=== PATIENT | male | born 1960 | race Asian ===

== ENCOUNTER → 2016-09-04 | Outpatient (CLI) | payer BC | LOC: PCVCIMAG 10:38 | PROVIDERS: ATTEND Internal Medicine Cardiovascular Disease | DX: R94.31 Abnormal electrocardiogram [ECG] [EKG] (principal); R00.1 Bradycardia, unspecified | CPT/HCPCS: 93325; 93351 ==

== ENCOUNTER → 2017-11-28 | Outpatient (CLI) | payer BC ==
[~2017-11-28] MED LIST: BENZOCAINE ONE 20% MUCOSAL SPRAY.; IV NORMAL SALINE 500ML BAG 500 ML; MIDAZOLAM HCL/PF 2 MG/2 ML VIAL.; fentaNYL PF VIAL 100 MCG/2 ML VIAL
== END | disposition home or self-care (01) ==
LOC: PCVCIMAG 13:05
DX: I48.91 Unspecified atrial fibrillation (principal); I05.1 Rheumatic mitral insufficiency
CPT/HCPCS: 93312; 93325; J2250; J3010; J7040

== ENCOUNTER → 2018-04-01 | Outpatient (CLI) | payer BC ==
--- NOTE | 2018-04-02 15:43 | PCVCIMAG ---
APPROVED REPORT Imaging Protocol: Rest Tc-99m/Stress Tc-99m 1 day Study performed: 04/01/2018 14:25:09 Indication: Dyspnea, P-Afib post Ablation Patient Location: Out-Patient Stress Nurse: Dana Arana RN, Shannon Min RN VT Tech:Janeth KOMAL PooleMT Ht: 5 ft 9 in Wt: 168 lbs BSA: 1.92 m2 HR: 80 bpm BP: 116/77 mmHg BMI: 24.8 Rhythm: Sinus Rhythm, early repolarization Medical History Medications: Xarelto Allergies: No known drug allergies Cardiac Risk Factors: Age, Afib Pretest Chest Pain Characteristics: No chest pain Exercise History: Physically active Resting Data Rest SPECT myocardial perfusion imaging was performed in supine position 45 minutes following the intravenous injection of 10.2 mCi of Tc-99m Sestamibi. Time of rest injection: 1350 Date: 04/01/2018 Administration Route: IV Administration Site: Right AC Exercise Stress At peak stress, the patient was injected intravenously with 31.6mCi of Tc-99m Sestamibi. Time of stress injection: Administration Route: IV Administration Site: Right AC Patient continued to exercise for 1 minute(s). Gated Stress SPECT was performed 30 minutes after stress injection. The images were gated to evaluate regional wall motion and calculate left ventricular ejection fraction. Stress Test Details Stress Test: Exercise stress testing was performed using a Anthony protocol. HRMax Heart Rate (APMHR): 160 bpm Resting HR: 80 bpmTarget HR (85% APMHR): 136 bpm Max HR Achieved: 157 bpm % of APMHR: 98 Recovery HR: 88 bpm HR response to stress: Normal HR response to stress BP Resting BP: 116/77 mmHg Max BP: 131/79 mmHg Recovery BP: 131/73 mmHg BP response to stress: Normal blood pressure response to stress. ECG Resting ECG: Sinus Rhythm with early repolarization changes Stress ECG: Sinus Tachycardia ST Change: None Maximum ST Deviation: 0 mm Arrhythmia: VPC's Recovery ECG: Sinus Rhythm Recovery ST Change: None Recovery ST Deviation: 0 mm Recovery Arrhythmia: None Clinical Reason for Termination: Fatigue Stress Symptoms: Dyspnea Exercise duration: 9 min 25 sec Exercise capacity: 11.4 METs Overall Exercise Capacity for Age: Good Scale: Active Angina Score: None Symptoms resolved during recovery. Stress ECG Conclusion ECG: Non-ischemic Clinical: Non-ischemic Mascorro Treadmill Score is 9.0 which is Low risk. Study Quality Study: Good Study Data Post stress, the left ventricular ejection was 71%.. SSS: 0 SRS: 0 SDS: 0 TID = 0.79. Perfusion No evidence of stress induced ischemia or prior myocardial infarction. Wall Motion Normal left ventricular size and function with no regional wall motion abnormalities. Nuclear Conclusion No evidence of stress induced ischemia or prior myocardial infarction. Normal left ventricular size and function with no regional wall motion abnormalities. Post stress, the left ventricular ejection was 71%. No prior study available for comparison. Interpreted by: Sammy Mendez MD Electronically Approved: 04/01/2018 17:09:34 <Conclusion> ECG: Non-ischemic Clinical: Non-ischemic
== END | disposition home or self-care (01) ==
LOC: PCVCIMAG 13:24
PROVIDERS: ATTEND Internal Medicine Cardiovascular Disease
DX: I48.0 Paroxysmal atrial fibrillation (principal); R06.09 Other forms of dyspnea; R07.9 Chest pain, unspecified
CPT/HCPCS: 78452; 93017; A9500